=== PATIENT | male | born 1980 | race Caucasian/White ===

== ENCOUNTER 2021-04-15 14:30 | Outpatient (RCR) | payer OTHER, SELFPAY ==
--- NOTE | 2021-03-23 16:05 | PTOPEVAL ---
INITIAL PHYSICAL THERAPY EVALUATION and PLAN OF CARE Thank you for referring Nomi Rutledge to [facility].? Nomi is scheduled to be seen for physical therapy? 2x/week for 3 weeks. Please review, sign, date and return this plan of care JASON. I agree with and certify that the following plan of care is medically necessary. Referring Physician Date Admitting Provider: Attending Provider: Devan Rae, Referring Provider: *PT Outpatient Evaluation Start: 03/23/21 14:39 Freq: Status: Active Protocol: Document 03/23/21 14:41 ROBERTO (Rec: 03/23/21 16:04 ROBERTO [id number]) Therapy Assessment Status Assessment Status Assessment Status Evaluation Outpatient Past Medical History Past Medical History Source of Past Medical History Patient Musculoskeletal History Hx Orthopedic Surgery Yes: R knee - plica syndrome,L hand cysts removal Evaluation Information Problem Diagnosis R elbow tendinitis Onset April 2020 Subjective Information He was adding stairs onto his Query Text:As Reported By Patient/ deck - drilling motion, Family pulling back motion. Has happened in the past - with projects around the house - goes away after a couple of weeks. This time it didn't - would get a little better - then do a home project and it would return. When R elbow is really bad - will bother him with movement in sleep. Mornings - some stiffness In past has used heat and/or ice. Will get discomfort lifting coffee cup. Prior Level of Function Activity Level (Last 3 Months) Occupation owns a [employer] Medications Home Meds (Include: OTC, RX, Vitamins, anti inflammatory Herbals, Dose, Route,and Frequency) Query Text:Home Med Entries Will No Longer Recall From Past Visits. Home Meds Must Be Re-entered With Each Visit. Comments Additional Prior Level of Function Work - sits at computer - Comments answers messages via zoom, computer - work things not bothering him - mainly stands at work Pain Assessment Timing of Pain Assessment Timing of Pain Assessment Assessment Pain Scale Pain Scale Used Numeric (1 - 10) Self Report Pain Assessment Right Elbow(s) Reported Pain Level 1 Pain Descri
--- NOTE | 2021-04-22 15:46 | PTOPEVAL ---
PHYSICAL THERAPY RE-EVALUATION/DISCHARGE SUMMARY Thank you for referring Nomi Rutledge to [facility] [place].? Rickie has been seen in PT x 6 visits. Mild gains have been made in regards to decreasing his R lateral elbow pain. Following below re-eval, I did speak with OTR at [facility] for other options with treatment. She was in agreement to what Rickie was already receiving and doing as HEP. Follow up phone call to Rickie on 04/20/21 was made. He is to continue with stretching and use ice. He wanted to follow up with Dr. Rae before considering any further PT. Will d/c from PT at this time. I agree with Rickie's discharge from PT. Referring Physician Date Admitting Provider: Attending Provider: Devan Rae, Referring Provider: Therapy Assessment Status Assessment Status Assessment Status Re-evaluation Evaluation Information Problem Diagnosis R elbow tendinitis Subjective Information Rickie reports at times even when Query Text:As Reported By Patient/ doing nothing will have pain Family into R elbow. Does feel discomfort at end range of elbow extension. Will feel discomfort with carrying in groceries, etc. Still not taking medication. Pain Assessment Self Report Pain Assessment Right Elbow(s) Reported Pain Level 0 Lowest Pain Intensity 0 Greatest Pain Intensity 3 Upper Extremity Range of Motion General Upper Extremity Range of Motion Gross Upper Extremity Range of Motion R supination 67 deg Comments Palpation Assessment Palpation Palpation Discomfort present at very distal edge of R lateral epicondyle, and posterior to R lateral epicondyle and olecranon process. Also discomfort present at lateral superior muscles medial to R lateral epicondyle. PT Clinical Summary Clinical Summary Protocol: PTEVCODE PT Clinical Summary Quick DASH - 16% Rickie has made some progress towards goals set, but still has low level of R lateral elbow pain even at rest at times. Less discomfort with coffee cup,but still discomfort with bringing in groceries, household activities, etc. R lateral elbow tenderness remains, now having some mild edema lateral to R lateral epicondyle. Will confer with O
== END 2021-05-13 15:41 | disposition home or self-care (01) ==
LOC: ANHHIPT 14:30
PROVIDERS: PCP Internal Medicine; Visit Provider Internal Medicine
DX: M67.823 Other specified disorders of tendon, right elbow (principal)
CPT/HCPCS: 97035; 97110; 97140; 97161